=== PATIENT | female | born 1965 | race Caucasian/White ===

== ENCOUNTER 2021-05-02 07:10 | Day surgery (SDC) | payer BC ==
[2021-04-29 15:07] LABS: BASOPHILS % (AUTO) 1 % (0-1); EOSINOPHILS % (AUTO) 2 % (1-7); LYMPHOCYTES % (AUTO) 36 % (22-44); MEAN CORPUSCULAR HEMOGLOBIN 29.7 pg (27.0-34.8); MEAN CORPUSCULAR HGB CONC 34.4 g/dL (32.4-35.8); MEAN PLATELET VOLUME 7.3 fL (7.4-10.4); MONOCYTES % (AUTO) 6 % (2-9); NEUTROPHILS % (AUTO) 55 % (42-75); PLATELET COUNT 228 x10^3/uL (130-400); RED CELL DISTRIBUTION WIDTH 13.9 % (9.6-15.2)
[2021-04-29 15:21] LABS: ALBUMIN 4.2 g/dL (3.4-5.0); ANION GAP 6 mmol/L (5-15); CALCIUM 9.8 mg/dL (8.5-10.1); CHLORIDE 105 mmol/L (98-107)
[2021-04-29 15:24] LABS: ALANINE AMINOTRANSFERASE 27 U/L (12-78); ALKALINE PHOSPHATASE 112 U/L (45-117); BILIRUBIN,TOTAL 0.7 mg/dL (0.2-1.0); CREATININE 0.78 mg/dL (0.55-1.02); TOTAL PROTEIN 7.5 g/dL (6.4-8.2)
[2021-04-29 15:25] LABS: INTERNATIONAL NORMALIZED RATIO 1.01 (0.93-1.1); PROTHROMBIN TIME 10.8 Seconds (9.6-11.5)
[~2021-05-02] VITALS: Ht 160 cm; Wt 68.7 kg
[~2021-05-02 07:10] MED LIST: BUPIVACAINE/PF-EPI 0.25% 1:200K ONE; HEPARIN 1,000 UNITS/ML, 10ML ONE; INDOCYANINE GREEN 25 MG VIAL ONE; TELM20TA PO
[2021-05-02] MEDS ORDERED: LACTATED RINGERS 1,000 ML IV SCH (07:30)
[2021-05-02] MEDS ORDERED: CHLORHEXIDINE 15 ML UDC PO ONE (07:30)
[2021-05-02 07:52] VITALS: BP 132/87
[2021-05-02] MEDS ORDERED: LEVOFLOXACIN/PMX 750MG/150ML 150 ML IV ONE (08:30)
[2021-05-02] MEDS ORDERED: METRONIDAZOLE PMX 500MG/100ML 100 ML IVPB ONE (08:30)
[2021-05-02] MEDS ORDERED: MIDAZOLAM 1 MG/ML, 2ML ONE (11:13)
[2021-05-02] MEDS ORDERED: FENTANYL PF 250 MCG/5ML ONE (11:13)
[2021-05-02] MEDS ORDERED: LABETALOL 5MG/ML, 20ML IV PRN (14:00)
[2021-05-02] MEDS ORDERED: METOCLOPRAMIDE 5 MG/ML, 2ML IV PRN (14:00)
[2021-05-02] MEDS ORDERED: ONDANSETRON 2MG/ML, 2ML IVPush PRN (14:00)
[2021-05-02] MEDS ORDERED: hydrALAzine 20 MG/ML, 1ML IV PRN (14:00)
[2021-05-02] MEDS ORDERED: PROMETHAZINE 25 MG/ML, 1ML IV PRN (14:00)
[2021-05-02] MEDS ORDERED: KETOROLAC 30 MG/1 ML IV PRN (14:00)
[2021-05-02] MEDS ORDERED: DIAZEPAM 5 MG/ML, 2ML IV PRN ×2 (14:00)
[2021-05-02] MEDS ORDERED: HYDROmorphone 1 MG/ML, 1ML INJ IV PRN (14:00)
[2021-05-02] MEDS ORDERED: MEPERIDINE/PF 25MG/0.5ML IVPush PRN (14:00)
[2021-05-02] MEDS ORDERED: FENTANYL PF 100 MCG/2ML IV PRN (14:00)
[2021-05-02] MEDS ORDERED: ALBUTEROL SULFATE 2.5 MG/3 ML NPPB PRN (14:00)
[2021-05-02] MEDS ORDERED: PROPOFOL 10 MG/ML, 20ML ONE (14:04)
[2021-05-02] MEDS ORDERED: DEXAMETHASONE 4 MG/ML, 1ML ONE (14:04)
[2021-05-02] MEDS ORDERED: SUCCINYLCHOLINE 20 MG/ML, 10ML ONE (14:04)
[2021-05-02] MEDS ORDERED: ROCURONIUM 10 MG/ML,10ML ONE (14:04)
[2021-05-02] MEDS ORDERED: ONDANSETRON 2MG/ML, 2ML ONE ×2 (14:04→15:05)
[2021-05-02] MEDS ORDERED: HEPARIN 1,000 UNITS/ML, 10ML ONE (14:47)
[2021-05-02] MEDS ORDERED: OXYcodone 5 MG/5 ML ORAL.SOL UDC ONE (14:55)
[2021-05-02] MEDS ORDERED: FENTANYL PF 100 MCG/2ML ONE (14:55)
[2021-05-02] MEDS: OXYcodone 5 MG/5 ML ORAL.SOL UDC PO PRN ×2 (15:10→15:29)
[2021-05-02] MEDS ORDERED: METOCLOPRAMIDE 5 MG/ML, 2ML ONE (17:11)
[2021-05-02] MEDS ORDERED: METOCLOPRAMIDE 5 MG/ML, 2ML IVPush ONE (17:30)
== END 2021-05-02 18:45 | disposition home or self-care (01) ==
LOC: OUT 07:10
PROVIDERS: ATTEND Obstetrics & Gynecology
DX: C54.1 Malignant neoplasm of endometrium (principal); N94.89 Other specified conditions associated with female genital organs and menstrual cycle; N73.6 Female pelvic peritoneal adhesions (postinfective); I10 Essential (primary) hypertension; Z79.01 Long term (current) use of anticoagulants; Z79.899 Other long term (current) drug therapy; Z87.442 Personal history of urinary calculi; Z87.891 Personal history of nicotine dependence; Z88.2 Allergy status to sulfonamides; Z88.8 Allergy status to other drugs, medicaments and biological substances; Z80.1 Family history of malignant neoplasm of trachea, bronchus and lung
CPT/HCPCS: 36415; 38570; 58552; 71046; 80053; 85025; 85610; 85730; 86304; 86850; 86900; 86923; 88112; 88305; 88309; 88331; 88333; 93005; J0330; J1100; J1644; J2250; J2405; J2704; J2765; J3010; J7120; S2900